=== PATIENT | female | born 1990 | race Hispanic/Latino ===

== ENCOUNTER 2018-08-02 19:07 | Emergency (ER) | payer MEDICAID | END 2018-08-02 19:50 | disposition home or self-care (01) | LOC: EDH 19:07 | DX: M54.12 Radiculopathy, cervical region (principal); R20.2 Paresthesia of skin; F41.9 Anxiety disorder, unspecified; Z90.49 Acquired absence of other specified parts of digestive tract; Z88.8 Allergy status to other drugs, medicaments and biological substances ==

== ENCOUNTER 2018-09-10 07:45 | Emergency (ER) | payer MEDICAID ==
[2018-09-10] MEDS ORDERED: ONDANSETRON ODT 4 MG TAB ONE (08:13)
[2018-09-10] MEDS ORDERED: HYDROCODONE/ACETAMINOPHEN 5/325 MG TAB ONE (08:13)
[2018-09-10 08:14] LABS: APPEARANCE,URINE Cloudy (CLEAR); BILIRUBIN,URINE Negative (NEGATIVE); COLOR,URINE Yellow (YELLOW); GLUCOSE, URINE (UA) Negative (NEGATIVE); KETONES,URINE Negative (NEGATIVE); LEUKOCYTE ESTERASE ,URINE Moderate (NEGATIVE); NITRATE,URINE Negative (NEGATIVE); OCCULT BLOOD,URINE Nonhemolyzed Trace (NEGATIVE); PH,URINE 5.5 (5.0-8.0); PROTEIN,URINE Negative (NEGATIVE)
[2018-09-10 08:15] LABS: HCG,QUAL RESULT NEGATIVE (NEGATIVE)
[2018-09-10 08:24] LABS: BACTERIA,URINE Few /HPF (None Seen); RBC,URINE 0-1 /HPF (0-1); SQUAMOUS EPITHELIAL CELL,UR Few /HPF (0-2)
== END 2018-09-10 09:17 | disposition home or self-care (01) ==
LOC: EDH 07:45
DX: N39.0 Urinary tract infection, site not specified (principal); Z90.49 Acquired absence of other specified parts of digestive tract; Z90.89 Acquired absence of other organs; Z98.890 Other specified postprocedural states; Z88.8 Allergy status to other drugs, medicaments and biological substances
CPT/HCPCS: 76856; 81001; 81025

== ENCOUNTER 2018-10-15 17:46 | Emergency (ER) | payer MEDICAID | END 2018-10-15 18:13 | disposition home or self-care (01) | LOC: EDH 17:46 | DX: J02.9 Acute pharyngitis, unspecified (principal); R13.10 Dysphagia, unspecified; K21.9 Gastro-esophageal reflux disease without esophagitis; Z90.49 Acquired absence of other specified parts of digestive tract; Z90.89 Acquired absence of other organs; Z98.890 Other specified postprocedural states; Z88.8 Allergy status to other drugs, medicaments and biological substances | CPT/HCPCS: 99281 ==

== ENCOUNTER 2018-11-11 08:38 | Day surgery (SDC) | payer MEDICAID ==
[~2018-11-11] VITALS: Ht 162.6 cm; Wt 108.0 kg
[~2018-11-11 08:38] MED LIST: ESOM20CA39 PO; SODIUM CHLORIDE 0.9% 1000ML 1,000 ML IV ONE
[2018-11-11 10:30] VITALS: BP 132/91
[2018-11-11 12:02] VITALS: BP 107/68
[2018-11-11 12:06] VITALS: BP 114/67
[2018-11-11 12:11] VITALS: BP 107/77
[2018-11-11 12:16] VITALS: BP 107/69
== END 2018-11-11 12:42 | disposition home or self-care (01) ==
LOC: ENDO 08:38 → DAH 08:38 → ENDO 12:42
PROVIDERS: ATTEND Internal Medicine
DX: K29.50 Unspecified chronic gastritis without bleeding (principal); K22.8 Other specified diseases of esophagus; K31.89 Other diseases of stomach and duodenum; F41.9 Anxiety disorder, unspecified; M19.90 Unspecified osteoarthritis, unspecified site; Z90.49 Acquired absence of other specified parts of digestive tract; Z90.89 Acquired absence of other organs; Z88.8 Allergy status to other drugs, medicaments and biological substances; Z79.899 Other long term (current) drug therapy
CPT/HCPCS: 36415; 43239; 84703; 88305; A4606; J7030

== ENCOUNTER → 2018-11-29 | Outpatient (CLI) | payer MEDICAID ==
[~2018-11-29] MED LIST changes: -SODIUM CHLORIDE 0.9% 1000ML 1,000 ML IV ONE
== END | disposition home or self-care (01) ==
LOC: RAH 08:55
PROVIDERS: ATTEND Internal Medicine Gastroenterology
DX: R13.10 Dysphagia, unspecified (principal); R12 Heartburn
CPT/HCPCS: 74240

== ENCOUNTER 2020-11-18 15:12 | Observation (INO) | payer MEDICAID ==
[~2020-11-18] VITALS: Ht 162.6 cm; Wt 122.5 kg
[2020-11-18 15:18] VITALS: BP 112/64
[2020-11-18 15:52] VITALS: BP 135/90
[2020-11-18 16:29] LABS: BILIRUBIN,URINE Negative (NEGATIVE); COLOR,URINE Yellow (YELLOW); GLUCOSE, URINE (UA) Negative (NEGATIVE); KETONES,URINE 15 mg/dL (NEGATIVE); LEUKOCYTE ESTERASE ,URINE Negative (NEGATIVE); NITRATE,URINE Negative (NEGATIVE); OCCULT BLOOD,URINE Negative (NEGATIVE); PROTEIN,URINE Negative (NEGATIVE); UROBILINOGEN,URINE 0.2 mg/dL (0.2-1.0)
[2020-11-18 16:30] LABS: APPEARANCE,URINE CLEAR (CLEAR)
[2020-11-18 17:44] LABS: HEMATOCRIT 34.2 % (36-48); MEAN CORPUSCULAR HEMOGLOBIN 29.7 pg (27.0-33.0); MEAN CORPUSCULAR HGB CONC 33.3 g/dL (32.0-36.0); MEAN CORPUSCULAR VOLUME 89.1 fL (79-99); RED BLOOD CELL COUNT(AUTO) 3.84 MIL/uL (4.00-5.50); RED CELL DISTRIBUTION WIDTH 13.2 % (11.0-15.5); WHITE BLOOD COUNT (AUTO) 8.6 K/uL (4.8-10.8)
[2020-11-18 17:54] LABS: INR 0.97 (0.85-1.15); PROTHROMBIN TIME 10.6 SEC (9.6-11.6)
[2020-11-18 17:56] LABS: PARTIAL THROMBOPLASTIN TIME 25.4 SEC (26.3-35.5)
== END 2020-11-18 21:15 | disposition home or self-care (01) ==
LOC: EDH 15:12 → LDH 15:13
PROVIDERS: ADMIT Obstetrics & Gynecology; ATTEND Obstetrics & Gynecology
DX: O99.891 Other specified diseases and conditions complicating pregnancy (principal); M54.5 Low back pain; M25.552 Pain in left hip; E11.9 Type 2 diabetes mellitus without complications; Z79.899 Other long term (current) drug therapy; Z98.890 Other specified postprocedural states; Z3A.30 30 weeks gestation of pregnancy; W01.0XXA Fall on same level from slipping, tripping and stumbling without subsequent striking against object, initial encounter; Y93.89 Activity, other specified; Y92.89 Other specified places as the place of occurrence of the external cause; Y99.8 Other external cause status
CPT/HCPCS: 36415; 76805; 81003; 85027; 85378; 85384; 85610; 85730; 86850; 86900; 86901; 99284; G0378 ×5; G0379

== ENCOUNTER 2021-01-08 20:35 | Observation (INO) | payer MEDICAID ==
[~2021-01-08] VITALS: Ht 162.6 cm; Wt 124.7 kg
[2021-01-08 21:01] VITALS: BP 105/60
[2021-01-08 21:17] LABS: APPEARANCE,URINE Clear (CLEAR); BILIRUBIN,URINE Negative (NEGATIVE); COLOR,URINE Yellow (YELLOW); GLUCOSE, URINE (UA) Negative (NEGATIVE); KETONES,URINE Negative (NEGATIVE); LEUKOCYTE ESTERASE ,URINE Trace (NEGATIVE); NITRATE,URINE Negative (NEGATIVE); OCCULT BLOOD,URINE Negative (NEGATIVE); PROTEIN,URINE Negative (NEGATIVE)
[2021-01-08 21:27] LABS: BACTERIA,URINE Few /HPF (None Seen); RBC,URINE 0-1 /HPF (0-1)
[2021-01-08 21:28] LABS: SQUAMOUS EPITHELIAL CELL,UR Moderate /HPF (0-2)
== END 2021-01-08 22:35 | disposition home or self-care (01) ==
LOC: EDH 20:35 → LDH 20:54
PROVIDERS: ADMIT Obstetrics & Gynecology; ATTEND Obstetrics & Gynecology
DX: O99.891 Other specified diseases and conditions complicating pregnancy (principal); M54.50 Low back pain, unspecified; O26.893 Other specified pregnancy related conditions, third trimester; N89.8 Other specified noninflammatory disorders of vagina; Z3A.37 37 weeks gestation of pregnancy
CPT/HCPCS: 59025; 81001; G0378 ×2; G0379

== ENCOUNTER 2021-01-14 22:24 | Inpatient (IN) | payer BC, MEDICAID ==
[~2021-01-14] VITALS: Ht 162.6 cm; Wt 123.8 kg
[2021-01-14 22:51] VITALS: BP 109/76
[2021-01-14 23:06] LABS: APPEARANCE,URINE Cloudy (CLEAR); BILIRUBIN,URINE Negative (NEGATIVE); COLOR,URINE Yellow (YELLOW); GLUCOSE, URINE (UA) Negative (NEGATIVE); KETONES,URINE 40 mg/dL (NEGATIVE); LEUKOCYTE ESTERASE ,URINE Small (NEGATIVE); NITRATE,URINE Negative (NEGATIVE); OCCULT BLOOD,URINE Negative (NEGATIVE); PH,URINE 5.5 (5.0-8.0); PROTEIN,URINE Trace mg/dL (NEGATIVE)
[2021-01-14 23:22] LABS: BACTERIA,URINE Moderate /HPF (None Seen); RBC,URINE None Seen /HPF (0-1); SQUAMOUS EPITHELIAL CELL,UR Moderate /HPF (0-2)
[2021-01-14] MEDS ORDERED: NALOXONE HCL 0.4 MG/1 ML ML IV PRN (23:30)
[2021-01-14] MEDS ORDERED: EPHEDRINE SULFATE 50 MG/ML AMPULE IVP PRN (23:30)
[2021-01-14] MEDS ORDERED: ROPIVACAINE 0.2% 100ML VIAL 100 ML EP PRN (23:30)
[2021-01-14] MEDS ORDERED: LACTATED RINGERS 500 ML 500 ML IV PRN (23:30)
[2021-01-14 23:33] LABS: HEMATOCRIT 33.8 % (36-48); MEAN CORPUSCULAR HEMOGLOBIN 28.2 pg (27.0-33.0); MEAN CORPUSCULAR HGB CONC 32.2 g/dL (32.0-36.0); MEAN CORPUSCULAR VOLUME 87.3 fL (79-99); RED BLOOD CELL COUNT(AUTO) 3.87 MIL/uL (4.00-5.50); RED CELL DISTRIBUTION WIDTH 14.3 % (11.0-15.5)
[2021-01-14] MEDS ORDERED: PREN1COM PO (23:38)
[2021-01-15] MEDS ORDERED: PROMETHAZINE HCL 25 MG/ML 1ML AMPULE IM PRN
[2021-01-15] MEDS ORDERED: AMPICILLIN 2GM+NS 100ML 100 ML IV SCH
[2021-01-15] MEDS ORDERED: MEPERIDINE-PF 50 MG/ML SYG IVP PRN
[2021-01-15] MEDS: LACTATED RINGERS 1000ML 1,000 ML IV PRN ×2 (00:20→09:04)
[2021-01-15] MEDS: AMPICILLIN 1GM+NS 50ML 50 ML IV SCH ×2 (03:31→08:00)
[2021-01-15] MEDS: OXYTOCIN-LR 20 UNITS/1000 ML 1,000 ML IV SCH ×2 (03:45→14:05)
[2021-01-15] MEDS ORDERED: LIDOCAINE HCL 1% 20 ML VIAL ONE (09:48)
[2021-01-15] MEDS ORDERED: WITCH HAZEL 1 PAD TP PRN (14:00)
[2021-01-15] MEDS ORDERED: LANOLIN 30GM OINTMENT TP PRN (14:00)
[2021-01-15] MEDS ORDERED: DIPH,PERTUSS(ACELL),TET VAC/PF 0.5 ML VIAL IM PRN (14:00)
[2021-01-15] MEDS ORDERED: ACETAMINOPHEN WITH CODEINE 1 TAB TAB PO PRN (14:00)
[2021-01-15] MEDS ORDERED: BENZOCAINE/LANOLIN/ALOE VERA 60 ML AEROSOL TP PRN (14:00)
[2021-01-15] MEDS ORDERED: MEASLES/MUMPS/RUBELLA VACCINE, LIVE 0.5 ML/VIAL SQ PRN (14:00)
[2021-01-15 15:36] VITALS: BP 104/59
[2021-01-15] MEDS: IBUPROFEN 600 MG TABLET PO PRN ×2 (15:58→23:05)
[2021-01-15] MEDS ORDERED: DOCUSATE SODIUM 100 MG CAP PO ONE (19:15)
[2021-01-15 19:17] VITALS: BP 121/71
[2021-01-15] MEDS: DOCUSATE SODIUM 100 MG CAP PO SCH (19:19)
[2021-01-15] MEDS: ACETAMINOPHEN 325 MG TAB PO PRN (19:20)
[2021-01-15 23:14] VITALS: BP 111/65
[2021-01-16 03:43] VITALS: BP 106/76
[2021-01-16] MEDS: IBUPROFEN 600 MG TABLET PO PRN ×2 (05:34→13:25)
[2021-01-16 06:26] LABS: HEMATOCRIT 30.1 % (36-48); MEAN CORPUSCULAR HEMOGLOBIN 28.7 pg (27.0-33.0); MEAN CORPUSCULAR HGB CONC 32.6 g/dL (32.0-36.0); RED BLOOD CELL COUNT(AUTO) 3.42 MIL/uL (4.00-5.50); RED CELL DISTRIBUTION WIDTH 14.2 % (11.0-15.5); WHITE BLOOD COUNT (AUTO) 8.2 K/uL (4.8-10.8)
[2021-01-16 07:16] VITALS: BP 125/71
[2021-01-16] MEDS: AMPICILLIN 1GM+NS 50ML 50 ML IV SCH (08:00)
[2021-01-16 08:14] LABS: HEPATITIS Bs ANTIGEN SCREEN P Negative (Negative)
[2021-01-16] MEDS: DOCUSATE SODIUM 100 MG CAP PO SCH (09:15)
[2021-01-16] MEDS: ACETAMINOPHEN 325 MG TAB PO PRN (09:17)
[2021-01-16 11:32] VITALS: BP 103/45
== END 2021-01-16 14:55 | disposition home or self-care (01) | DRG 806 ==
LOC: LDH 22:24 → WSH 01-15 15:36
PROVIDERS: ADMIT Obstetrics & Gynecology; ATTEND Obstetrics & Gynecology
PROC: 10E0XZZ Delivery of Products of Conception, External Approach (ICD-10-PCS; principal; 2021-01-15)
PROC: 0UQGXZZ Repair Vagina, External Approach (ICD-10-PCS; 2021-01-15)
PROC: 10907ZC Drainage of Amniotic Fluid, Therapeutic from Products of Conception, Via Natural or Artificial Opening (ICD-10-PCS; 2021-01-15)
PROC: 3E033VJ Introduction of Other Hormone into Peripheral Vein, Percutaneous Approach (ICD-10-PCS; 2021-01-15)
PROC: 3E0234Z Introduction of Serum, Toxoid and Vaccine into Muscle, Percutaneous Approach (ICD-10-PCS; 2021-01-15)
DX: O24.420 Gestational diabetes mellitus in childbirth, diet controlled (principal); O71.4 Obstetric high vaginal laceration alone; Z37.0 Single live birth; E66.01 Morbid (severe) obesity due to excess calories; O99.214 Obesity complicating childbirth; O99.824 Streptococcus B carrier state complicating childbirth; Z3A.38 38 weeks gestation of pregnancy; Z23 Encounter for immunization
CPT/HCPCS: 36415; 81001; 82947; 85027; 86592; 86850; 86900; 86901; 87088; 87340; 90715; A4351; G0378; J0290; J2175; J2550; J2590